=== PATIENT | female | born 1930 | race Two or more races ===

== ENCOUNTER 2017-02-07 16:05 | Inpatient (IN) | payer MEDICARE, OTHER ==
[2017-02-07] VITALS (8 sets, daily range): BP systolic 122–144; BP diastolic 60–82
[~2017-02-07] VITALS: Ht 154.9 cm; Wt 51.1 kg
[2017-02-07] MEDS ORDERED: SODIUM CHLORIDE FLUSH 10ML SYR IVF ONE (16:30)
[2017-02-07] MEDS ORDERED: ONDANSETRON 2MG/ML, 2ML IVPush ONE (16:30)
[2017-02-07 17:15] LABS: WHITE BLOOD COUNT 7.3 x10^3/uL (3.4-10)
[2017-02-07 17:17] LABS: BLOOD UREA NITROGEN 16 mg/dL (7-18)
[2017-02-07 17:19] LABS: HEMATOCRIT 21.7 % (34.6-47.8); HEMOGLOBIN 6.7 g/dL (11.7-16.4)
[2017-02-07 17:22] LABS: IS PT STATUS REG ER OR PRE ER? YES
[2017-02-07] MEDS ORDERED: AMLO10TA2 PO (17:23)
[2017-02-07 17:26] LABS: DIFF TOTAL CELLS COUNTED 100 CELL DIFF
[2017-02-07 17:34] LABS: ANISOCYTOSIS 1+; MICROCYTOSIS 2+; VERIFY COUNTS? YES
[2017-02-07 17:35] LABS: HYPOCHROMIA 2+; POLYCHROMASIA 1+
[2017-02-07] MEDS ORDERED: ENALAPRILAT 1.25 MG/ML, 2ML IVPush PRN (19:30)
[2017-02-07] MEDS ORDERED: ONDANSETRON ODT 4 MG PO PRN (19:30)
[2017-02-07] MEDS ORDERED: DOCUSATE 100 MG CAPSULE PO PRN (19:30)
[2017-02-07] MEDS ORDERED: DIPHENHYDRAMINE 25 MG CAPSULE PO PRN (19:30)
[2017-02-07] MEDS ORDERED: ACETAMINOPHEN 325 MG TABLET PO PRN (19:30)
[2017-02-08] VITALS (8 sets, daily range): BP systolic 112–134; BP diastolic 62–74
[2017-02-08 05:28] LABS: HEMATOCRIT 33.1 % (34.6-47.8); HEMOGLOBIN 10.7 g/dL (11.7-16.4); WHITE BLOOD COUNT 6.9 x10^3/uL (3.4-10)
[2017-02-08 05:36] LABS: BLOOD UREA NITROGEN 14 mg/dL (7-18)
[2017-02-08 06:39] LABS: TOTAL IRON BINDING CAPACITY 316 mcg/dL (250-450)
[2017-02-08] MEDS ORDERED: FLU VACC QS2017-18 (36MOS+) UP/PF 0.5 ML IM-VACC ONE (07:00)
[2017-02-08] MEDS ORDERED: PNEUMOCOCCAL 23 VACCINE IM-VACC ONE (07:00)
[2017-02-08] MEDS ORDERED: SODIUM CHLORIDE 0.9% 1,000 ML IV SCH (07:00)
[2017-02-08] MEDS: AMLODIPINE 5 MG TABLET PO SCH (09:00)
[2017-02-09 02:10] VITALS: BP 112/62
[2017-02-09 05:52] LABS: HEMATOCRIT 36.6 % (34.6-47.8); HEMOGLOBIN 11.8 g/dL (11.7-16.4); WHITE BLOOD COUNT 9.4 x10^3/uL (3.4-10)
[2017-02-09 07:43] VITALS: BP 119/63
[2017-02-09] MEDS: AMLODIPINE 5 MG TABLET PO SCH (09:00)
[2017-02-09 13:34] VITALS: BP 114/67
== END 2017-02-09 17:26 | disposition home or self-care (01) | DRG 377 ==
LOC: ED 17:30 → EDIP 18:17 → 3NE 20:41
PROVIDERS: ADMIT Hospitalist; ATTEND Family Medicine
PROC: 30233N1 Transfusion of Nonautologous Red Blood Cells into Peripheral Vein, Percutaneous Approach (ICD-10-PCS; principal; 2017-02-07)
DX: K92.1 Melena (principal); E43 Unspecified severe protein-calorie malnutrition; D62 Acute posthemorrhagic anemia; E87.1 Hypo-osmolality and hyponatremia; D50.0 Iron deficiency anemia secondary to blood loss (chronic); Z68.21 Body mass index [BMI] 21.0-21.9, adult; I10 Essential (primary) hypertension; Z53.20 Procedure and treatment not carried out because of patient's decision for unspecified reasons
CPT/HCPCS: 36415; 70450; 71010; 80048; 82040; 83540; 83550; 83880; 84484; 85025; 86850; 86900; 86923; 90686; 90732; 93005; 99285; P9016